=== PATIENT | male | born 1960 | race Two or more races ===

== ENCOUNTER 2016-06-15 11:41 | Day surgery (SDC) | payer MEDICARE ==
[2016-06-12 14:50] LABS: Basophils # (auto) 0 uL; Basophils % (auto) 0.2 % (0.0-2.0); Eosinophils # (auto) 0.1 uL; Eosinophils % (auto) 0.8 % (0.0-7.0); Hemoglobin 14.5 g/dL (13.5-17.5); Lymphocytes # (auto) 1.3 uL; Lymphocytes % (auto) 11.1 % (10.0-50.0); Mean Corpuscular Hemoglobin 34.2 pg (28.0-32.0); Mean Corpuscular Hgb Conc. 33.8 g/dL (32.0-36.0); Mean Corpuscular Volume 101.1 fL (80.0-100.0); Monocytes # (auto) 0.9 uL; Monocytes % (auto) 7.5 % (0.0-12.0); Neutrophils # (auto) 9.6 uL; Neutrophils % (auto) 80.4 % (37.0-80.0); Platelet Count (auto) 281 10^3/uL (140-450); Red Cell Distribution Width 14.9 % (11.6-16.0); White Blood Cell 11.9 10^3/uL (4.4-10.8)
[2016-06-12 15:07] LABS: INR 0.93 (0.9-1.15); Partial Thromboplastin Time 28.5 sec (22.64-33.71)
[~2016-06-15] VITALS: Ht 167.6 cm; Wt 59.0 kg
[~2016-06-15 11:41] MED LIST: FOLI1TAB6 PO; METF-370 PO; SERT-138 PO
[2016-06-15] MEDS ORDERED: LIDOCAINE HCL 2 % INJ 2ML MPF NEB ONE (11:45)
[2016-06-15] MEDS ORDERED: LIDOCAINE 2%HCL (LOCAL ANESTH.) INJ 20ML MDV ONE ×2 (11:56→12:41)
[2016-06-15] MEDS ORDERED: SODIUM CHLORIDE LOCK 10 ML ONE (12:49)
[2016-06-15] MEDS: fentaNYL CITRATE 100 MCG/2 ML VL ONE ×2 (13:24→13:33)
[2016-06-15] MEDS: MIDAZOLAM HCL 5 MG/ML-1ML VIAL ONE ×5 (13:24→13:44)
[2016-06-15] MEDS ORDERED: MIDAZOLAM HCL 5 MG/ML-1ML VIAL ONE (13:46)
[2016-06-15 17:18] VITALS: BP 145/76
== END 2016-06-15 17:45 | disposition home or self-care (01) ==
LOC: GI 11:41
PROVIDERS: ATTEND Internal Medicine Pulmonary Disease
DX: R91.8 Other nonspecific abnormal finding of lung field (principal); F10.99 Alcohol use, unspecified with unspecified alcohol-induced disorder; E11.9 Type 2 diabetes mellitus without complications; Z87.891 Personal history of nicotine dependence
CPT/HCPCS: 31624; 31625; 36415; 71010; 82962; 85025; 85610; 85730; 87070; 87205; 88305; 88341; 88342; 94640; 94660; J2250; J3010

== ENCOUNTER → 2016-08-05 | Outpatient (CLI) | payer MEDICARE ==
[2016-08-05 12:25] LABS: CONDITION Y; Hematocrit 40.5 % (41.0-53.0); Hemoglobin 13.7 g/dL (13.5-17.5); Mean Corpuscular Hemoglobin 33.5 pg (28.0-32.0); Mean Corpuscular Hgb Conc. 33.9 g/dL (32.0-36.0); Mean Platelet Volume 7.9 fL (7.4-10.4); Platelet Count (auto) 245 10^3/uL (140-450); Red Cell Distribution Width 14.3 % (11.6-16.0); SUSPECT SEE PRINTOUT; White Blood Cell 10.6 10^3/uL (4.4-10.8)
[2016-08-05 12:43] LABS: Albumin 2.9 g/dL (3.4-5.0); BUN/Creatinine Ratio 18.4; Bilirubin, Total 0.6 mg/dL (0.2-1.0); Calcium 8.2 mg/dL (8.5-10.1); Total Protein 7.3 g/dL (6.4-8.2)
[2016-08-05 13:02] LABS: Potassium 5.2 mmol/L (3.5-5.1)
[2016-08-05 13:05] LABS: Metamyelocytes % 0; Myelocytes % 0; Promyelocytes % 0; Reactive Lymphocytes 0
[2016-08-05 14:37] LABS: Platelet Estimate Adequate
[2016-08-05 14:38] LABS: Stomatocytes Few
== END | disposition home or self-care (01) ==
LOC: LAB 12:06
PROVIDERS: ATTEND Internal Medicine
DX: C34.12 Malignant neoplasm of upper lobe, left bronchus or lung (principal)
CPT/HCPCS: 36415; 80053; 83615; 85007; 85027

== ENCOUNTER → 2016-08-11 | Outpatient (CLI) | payer MEDICARE ==
[2016-08-11 14:40] LABS: Basophils # (auto) 0.1 uL; Basophils % (auto) 0.5 % (0.0-2.0); CONDITION Y; Eosinophils # (auto) 0 uL; Eosinophils % (auto) 0.4 % (0.0-7.0); Hematocrit 39.1 % (41.0-53.0); Hemoglobin 13.4 g/dL (13.5-17.5); Lymphocytes % (auto) 10.6 % (10.0-50.0); Mean Corpuscular Hemoglobin 33.7 pg (28.0-32.0); Mean Corpuscular Hgb Conc. 34.1 g/dL (32.0-36.0); Mean Corpuscular Volume 98.9 fL (80.0-100.0); Mean Platelet Volume 7.1 fL (7.4-10.4); Monocytes # (auto) 0.6 uL; Monocytes % (auto) 6.5 % (0.0-12.0); Platelet Count (auto) 244 10^3/uL (140-450); White Blood Cell 9.8 10^3/uL (4.4-10.8)
[2016-08-11 14:57] LABS: BUN/Creatinine Ratio 11.3; Potassium 3.5 mmol/L (3.5-5.1)
== END | disposition home or self-care (01) ==
LOC: LAB 14:29
PROVIDERS: ATTEND Internal Medicine
DX: C34.12 Malignant neoplasm of upper lobe, left bronchus or lung (principal)
CPT/HCPCS: 36415; 80048; 85025

== ENCOUNTER → 2016-08-17 | Outpatient (CLI) | payer MEDICARE ==
[2016-08-17 11:08] LABS: Basophils # (auto) 0 uL; Basophils % (auto) 0.7 % (0.0-2.0); CONDITION Y; Eosinophils # (auto) 0 uL; Hematocrit 44.4 % (41.0-53.0); Hemoglobin 15.3 g/dL (13.5-17.5); Lymphocytes # (auto) 0.9 uL; Lymphocytes % (auto) 17.6 % (10.0-50.0); Mean Corpuscular Hgb Conc. 34.4 g/dL (32.0-36.0); Mean Corpuscular Volume 98.7 fL (80.0-100.0); Mean Platelet Volume 7.8 fL (7.4-10.4); Monocytes # (auto) 0.3 uL; Monocytes % (auto) 6.4 % (0.0-12.0); Neutrophils # (auto) 3.7 uL; Neutrophils % (auto) 74.3 % (37.0-80.0); Platelet Count (auto) 260 10^3/uL (140-450); SUSPECT SEE PRINTOUT
[2016-08-17 11:20] LABS: Platelet Estimate Adequate
[2016-08-17 11:21] LABS: RBC Morphology Normal
[2016-08-17 11:27] LABS: Calcium 9.5 mg/dL (8.5-10.1); Potassium 4.5 mmol/L (3.5-5.1)
== END | disposition home or self-care (01) ==
LOC: LAB 10:11
PROVIDERS: ATTEND Internal Medicine
DX: C34.12 Malignant neoplasm of upper lobe, left bronchus or lung (principal)
CPT/HCPCS: 36415; 80048; 85025

== ENCOUNTER → 2016-08-24 | Outpatient (CLI) | payer MEDICARE ==
[2016-08-24 14:32] LABS: Basophils # (auto) 0 uL; Basophils % (auto) 0.9 % (0.0-2.0); CONDITION Y; Eosinophils # (auto) 0.1 uL; Eosinophils % (auto) 1.6 % (0.0-7.0); Hemoglobin 12.9 g/dL (13.5-17.5); Lymphocytes # (auto) 0.9 uL; Lymphocytes % (auto) 26.9 % (10.0-50.0); Mean Corpuscular Hemoglobin 33.7 pg (28.0-32.0); Mean Platelet Volume 6.7 fL (7.4-10.4); Monocytes # (auto) 0.3 uL; Monocytes % (auto) 8.7 % (0.0-12.0); Neutrophils % (auto) 61.9 % (37.0-80.0); Platelet Count (auto) 248 10^3/uL (140-450); Red Cell Distribution Width 14.1 % (11.6-16.0); SUSPECT SEE PRINTOUT; White Blood Cell 3.2 10^3/uL (4.4-10.8)
[2016-08-24 15:06] LABS: Albumin 3.5 g/dL (3.4-5.0); BUN/Creatinine Ratio 13.3; Bilirubin, Total 0.2 mg/dL (0.2-1.0); Calcium 8.6 mg/dL (8.5-10.1); Potassium 3.9 mmol/L (3.5-5.1); Total Protein 7.5 g/dL (6.4-8.2)
== END | disposition home or self-care (01) ==
LOC: LAB 14:12
PROVIDERS: ATTEND Internal Medicine
DX: C34.2 Malignant neoplasm of middle lobe, bronchus or lung (principal)
CPT/HCPCS: 36415; 80053; 85025

== ENCOUNTER → 2016-08-31 | Outpatient (CLI) | payer MEDICARE ==
[2016-08-31 14:41] LABS: Basophils # (auto) 0 uL; Basophils % (auto) 0.8 % (0.0-2.0); CONDITION Y; Eosinophils # (auto) 0.1 uL; Eosinophils % (auto) 1.7 % (0.0-7.0); Hematocrit 37.3 % (41.0-53.0); Lymphocytes # (auto) 0.9 uL; Lymphocytes % (auto) 23.3 % (10.0-50.0); Mean Corpuscular Hemoglobin 34.2 pg (28.0-32.0); Mean Corpuscular Volume 97.9 fL (80.0-100.0); Mean Platelet Volume 6.7 fL (7.4-10.4); Monocytes # (auto) 0.3 uL; Monocytes % (auto) 8.2 % (0.0-12.0); Neutrophils # (auto) 2.7 uL; Platelet Count (auto) 178 10^3/uL (140-450); Red Cell Distribution Width 14.3 % (11.6-16.0); SUSPECT SEE PRINTOUT; White Blood Cell 4.1 10^3/uL (4.4-10.8)
[2016-08-31 14:54] LABS: BUN/Creatinine Ratio 15.2; Calcium 8.7 mg/dL (8.5-10.1); Potassium 3.9 mmol/L (3.5-5.1)
== END | disposition home or self-care (01) ==
LOC: LAB 14:18
PROVIDERS: ATTEND Internal Medicine
DX: C34.12 Malignant neoplasm of upper lobe, left bronchus or lung (principal)
CPT/HCPCS: 36415; 80048; 83615; 85025

== ENCOUNTER → 2016-09-07 | Outpatient (CLI) | payer MEDICARE ==
[2016-09-07 14:48] LABS: Basophils # (auto) 0 uL; CONDITION Y; Eosinophils # (auto) 0.1 uL; Monocytes # (auto) 0.2 uL; SUSPECT SEE PRINTOUT
[2016-09-07 15:04] LABS: Albumin 3.3 g/dL (3.4-5.0); BUN/Creatinine Ratio 15.8; Bilirubin, Total 0.5 mg/dL (0.2-1.0); Calcium 9.3 mg/dL (8.5-10.1); Potassium 3.9 mmol/L (3.5-5.1); Total Protein 7.5 g/dL (6.4-8.2)
[2016-09-07 15:21] LABS: Basophils % (auto) 0.3 % (0.0-2.0); Eosinophils % (auto) 1.4 % (0.0-7.0); Hematocrit 32.7 % (41.0-53.0); Hemoglobin 11.6 g/dL (13.5-17.5); Lymphocytes # (auto) 0.6 uL; Lymphocytes % (auto) 15.8 % (10.0-50.0); Mean Corpuscular Hemoglobin 34.7 pg (28.0-32.0); Mean Corpuscular Hgb Conc. 35.5 g/dL (32.0-36.0); Mean Corpuscular Volume 97.8 fL (80.0-100.0); Mean Platelet Volume 6.9 fL (7.4-10.4); Monocytes % (auto) 4.7 % (0.0-12.0); Neutrophils # (auto) 2.8 uL; Neutrophils % (auto) 77.8 % (37.0-80.0); Platelet Count (auto) 115 10^3/uL (140-450); Red Cell Distribution Width 14.9 % (11.6-16.0); White Blood Cell 3.6 10^3/uL (4.4-10.8)
== END | disposition home or self-care (01) ==
LOC: LAB 14:37
PROVIDERS: ATTEND Internal Medicine
DX: C34.12 Malignant neoplasm of upper lobe, left bronchus or lung (principal)
CPT/HCPCS: 36415; 80053; 83615; 85025

== ENCOUNTER → 2016-09-14 | Outpatient (CLI) | payer MEDICARE ==
[2016-09-14 12:54] LABS: Albumin 3.3 g/dL (3.4-5.0); BUN/Creatinine Ratio 21.3; Bilirubin, Total 0.4 mg/dL (0.2-1.0); Calcium 9.6 mg/dL (8.5-10.1); Potassium 4.8 mmol/L (3.5-5.1); Total Protein 7.7 g/dL (6.4-8.2)
[2016-09-14 14:19] LABS: Basophils # (auto) 0 uL; Basophils % (auto) 0.6 % (0.0-2.0); CONDITION Y; Eosinophils # (auto) 0 uL; Eosinophils % (auto) 2.3 % (0.0-7.0); Hematocrit 31.8 % (41.0-53.0); Hemoglobin 11.3 g/dL (13.5-17.5); Lymphocytes # (auto) 0.7 uL; Lymphocytes % (auto) 32.5 % (10.0-50.0); Mean Corpuscular Hemoglobin 35.5 pg (28.0-32.0); Mean Corpuscular Hgb Conc. 35.6 g/dL (32.0-36.0); Mean Corpuscular Volume 99.6 fL (80.0-100.0); Mean Platelet Volume 8.3 fL (7.4-10.4); Monocytes # (auto) 0.2 uL; Monocytes % (auto) 7.5 % (0.0-12.0); Neutrophils # (auto) 1.2 uL; Neutrophils % (auto) 57.1 % (37.0-80.0); Platelet Count (auto) 112 10^3/uL (140-450); Red Cell Distribution Width 15.2 % (11.6-16.0); SUSPECT SEE PRINTOUT
== END | disposition home or self-care (01) ==
LOC: LAB 12:08
PROVIDERS: ATTEND Internal Medicine
DX: C34.12 Malignant neoplasm of upper lobe, left bronchus or lung (principal)
CPT/HCPCS: 36415; 80053; 83615; 85025

== ENCOUNTER → 2016-09-21 | Outpatient (CLI) | payer MEDICARE ==
[2016-09-21 14:28] LABS: CONDITION Y; DEFINITIVE SEE PRINTOUT; Hematocrit 33.3 % (41.0-53.0); Hemoglobin 11.5 g/dL (13.5-17.5); Mean Corpuscular Hemoglobin 35.3 pg (28.0-32.0); Mean Corpuscular Hgb Conc. 34.6 g/dL (32.0-36.0); Mean Platelet Volume 7.4 fL (7.4-10.4); Platelet Count (auto) 318 10^3/uL (140-450); Red Cell Distribution Width 17.1 % (11.6-16.0); SUSPECT SEE PRINTOUT
[2016-09-21 14:42] LABS: White Blood Cell 3.5 10^3/uL (4.4-10.8)
[2016-09-21 14:43] LABS: Metamyelocytes % 0; Myelocytes % 0; Promyelocytes % 0; Reactive Lymphocytes 0
[2016-09-21 14:53] LABS: Albumin 3.5 g/dL (3.4-5.0); Bilirubin, Total 0.1 mg/dL (0.2-1.0); Calcium 9.3 mg/dL (8.5-10.1); Potassium 4.1 mmol/L (3.5-5.1); Total Protein 7.8 g/dL (6.4-8.2)
[2016-09-21 20:31] LABS: Macrocytosis Slight; Platelet Estimate Adequate
== END | disposition home or self-care (01) ==
LOC: LAB 14:06
PROVIDERS: ATTEND Internal Medicine
DX: C34.12 Malignant neoplasm of upper lobe, left bronchus or lung (principal)
CPT/HCPCS: 36415; 80053; 83615; 85007; 85027

== ENCOUNTER → 2016-10-08 | Outpatient (CLI) | payer MEDICARE ==
[2016-10-08 10:14] LABS: CONDITION Y; DEFINITIVE SEE PRINTOUT; Hematocrit 40.9 % (41.0-53.0); Hemoglobin 14.1 g/dL (13.5-17.5); Mean Corpuscular Hemoglobin 37.4 pg (28.0-32.0); Mean Corpuscular Hgb Conc. 34.4 g/dL (32.0-36.0); Mean Corpuscular Volume 108.9 fL (80.0-100.0); Mean Platelet Volume 7.3 fL (7.4-10.4); Platelet Count (auto) 287 10^3/uL (140-450); SUSPECT SEE PRINTOUT; White Blood Cell 6.8 10^3/uL (4.4-10.8)
[2016-10-08 10:18] LABS: Red Cell Distribution Width 24.5 % (11.6-16.0)
[2016-10-08 10:19] LABS: Metamyelocytes % 0; Myelocytes % 0; Promyelocytes % 0; Reactive Lymphocytes 0
[2016-10-08 10:50] LABS: Albumin 3.4 g/dL (3.4-5.0); BUN/Creatinine Ratio 7.8; Bilirubin, Total 0.2 mg/dL (0.2-1.0); Calcium 8.9 mg/dL (8.5-10.1); Potassium 4.2 mmol/L (3.5-5.1); Total Protein 7.8 g/dL (6.4-8.2)
[2016-10-08 11:05] LABS: Anisocytosis Moderate; Macrocytosis Moderate; Platelet Estimate Adequate; Stomatocytes Few
== END | disposition home or self-care (01) ==
LOC: LAB 09:28
PROVIDERS: ATTEND Internal Medicine
DX: C34.12 Malignant neoplasm of upper lobe, left bronchus or lung (principal)
CPT/HCPCS: 36415; 80053; 83615; 85007; 85027

== ENCOUNTER → 2016-10-28 | Outpatient (CLI) | payer MEDICARE ==
[2016-10-28 12:11] LABS: Basophils # (auto) 0 uL; Basophils % (auto) 0.8 % (0.0-2.0); Eosinophils # (auto) 0 uL; Eosinophils % (auto) 1.1 % (0.0-7.0); Hematocrit 36.2 % (41.0-53.0); Hemoglobin 12.7 g/dL (13.5-17.5); Lymphocytes # (auto) 0.7 uL; Lymphocytes % (auto) 16.1 % (10.0-50.0); Mean Corpuscular Hemoglobin 40.9 pg (28.0-32.0); Mean Corpuscular Volume 116.8 fL (80.0-100.0); Mean Platelet Volume 7.9 fL (7.4-10.4); Monocytes # (auto) 0.6 uL; Monocytes % (auto) 13.2 % (0.0-12.0); Neutrophils # (auto) 2.9 uL; Neutrophils % (auto) 68.8 % (37.0-80.0); Nucleated Red Blood Cells % 0.2 %; Platelet Count (auto) 27 10^3/uL (140-450); White Blood Cell 4.2 10^3/uL (4.4-10.8)
[2016-10-28 12:30] LABS: Red Cell Distribution Width 22.4 % (11.8-14.3)
[2016-10-28 12:34] LABS: Albumin 3.6 g/dL (3.4-5.0); Bilirubin, Total 0.5 mg/dL (0.2-1.0); Calcium 8.8 mg/dL (8.5-10.1); Potassium 4.3 mmol/L (3.5-5.1); Total Protein 7.6 g/dL (6.4-8.2)
[2016-10-28 13:48] LABS: Platelet Estimate Decreased
[2016-10-28 13:49] LABS: Anisocytosis Moderate; Macrocytosis Marked
[2016-10-28 13:50] LABS: Stomatocytes Few
== END | disposition home or self-care (01) ==
LOC: LAB 11:57
PROVIDERS: ATTEND Internal Medicine
DX: C34.12 Malignant neoplasm of upper lobe, left bronchus or lung (principal)
CPT/HCPCS: 36415; 80053; 83615; 85025

== ENCOUNTER → 2016-11-02 | Outpatient (CLI) | payer MEDICARE ==
[2016-11-02 13:25] LABS: Basophils # (auto) 0 uL; Basophils % (auto) 0.3 % (0.0-2.0); CONDITION Y; DEFINITIVE SEE PRINTOUT; Eosinophils # (auto) 0.1 uL; Hematocrit 32.9 % (41.0-53.0); Hemoglobin 11.5 g/dL (13.5-17.5); Lymphocytes # (auto) 0.9 uL; Lymphocytes % (auto) 15.5 % (10.0-50.0); Mean Corpuscular Hemoglobin 40.7 pg (28.0-32.0); Mean Corpuscular Hgb Conc. 34.9 g/dL (32.0-36.0); Mean Corpuscular Volume 116.7 fL (80.0-100.0); Mean Platelet Volume 8.9 fL (6.9-10.8); Monocytes # (auto) 0.5 uL; Monocytes % (auto) 8.7 % (0.0-12.0); Neutrophils # (auto) 4.4 uL; Neutrophils % (auto) 74.5 % (37.0-80.0); SUSPECT SEE PRINTOUT
[2016-11-02 13:31] LABS: Red Cell Distribution Width 20.9 % (11.8-14.3)
[2016-11-02 13:32] LABS: Platelet Count (auto) 17 10^3/uL (140-450)
[2016-11-02 14:14] LABS: Anisocytosis Moderate; Macrocytosis Marked; Platelet Estimate Markedly Decreased; Stomatocytes Few
== END | disposition home or self-care (01) ==
LOC: LAB 13:10
PROVIDERS: ATTEND Internal Medicine
DX: C34.12 Malignant neoplasm of upper lobe, left bronchus or lung (principal)
CPT/HCPCS: 36415; 85025

== ENCOUNTER → 2016-11-05 | Outpatient (CLI) | payer MEDICARE ==
[2016-11-05 08:17] LABS: Basophils # (auto) 0 uL; Basophils % (auto) 0.7 % (0.0-2.0); Eosinophils # (auto) 0.1 uL; Hematocrit 33.9 % (41.0-53.0); Hemoglobin 11.9 g/dL (13.5-17.5); Lymphocytes # (auto) 0.5 uL; Lymphocytes % (auto) 10.9 % (10.0-50.0); Mean Corpuscular Hemoglobin 42.8 pg (28.0-32.0); Mean Corpuscular Hgb Conc. 35.2 g/dL (32.0-36.0); Mean Corpuscular Volume 121.8 fL (80.0-100.0); Mean Platelet Volume 7.8 fL (6.9-10.8); Monocytes # (auto) 0.3 uL; Monocytes % (auto) 5.4 % (0.0-12.0); Neutrophils # (auto) 3.9 uL; Nucleated Red Blood Cells % 0.2 %; Red Cell Distribution Width 19.2 % (11.8-14.3); White Blood Cell 4.8 10^3/uL (4.4-10.8)
[2016-11-05 08:36] LABS: Platelet Count (auto) 19 10^3/uL (140-450)
[2016-11-05 09:05] LABS: Anisocytosis Slight; Macrocytosis Moderate; Platelet Estimate Markedly Decreased
== END | disposition home or self-care (01) ==
LOC: LAB 07:57
PROVIDERS: ATTEND Internal Medicine
DX: C34.12 Malignant neoplasm of upper lobe, left bronchus or lung (principal)
CPT/HCPCS: 36415; 82565; 84520; 85025

== ENCOUNTER → 2016-11-10 | Outpatient (CLI) | payer MEDICARE ==
[2016-11-10 12:34] LABS: Basophils # (auto) 0 uL; Basophils % (auto) 0.3 % (0.0-2.0); Eosinophils # (auto) 0 uL; Eosinophils % (auto) 0.7 % (0.0-7.0); Hematocrit 33.2 % (41.0-53.0); Hemoglobin 11.6 g/dL (13.5-17.5); Lymphocytes # (auto) 0.4 uL; Lymphocytes % (auto) 9.9 % (10.0-50.0); Mean Corpuscular Hemoglobin 42.9 pg (28.0-32.0); Mean Corpuscular Hgb Conc. 34.8 g/dL (32.0-36.0); Mean Corpuscular Volume 123.1 fL (80.0-100.0); Mean Platelet Volume 8.5 fL (6.9-10.8); Monocytes # (auto) 0.6 uL; Monocytes % (auto) 13.9 % (0.0-12.0); Neutrophils # (auto) 3.3 uL; Neutrophils % (auto) 75.2 % (37.0-80.0); Nucleated Red Blood Cells % 0.5 %; Platelet Count (auto) 37 10^3/uL (140-450); Red Cell Distribution Width 19.1 % (11.8-14.3); White Blood Cell 4.4 10^3/uL (4.4-10.8)
[2016-11-10 13:53] LABS: Platelet Estimate Markedly Decreased
[2016-11-10 13:54] LABS: Anisocytosis Slight; Macrocytosis Moderate
== END | disposition home or self-care (01) ==
LOC: LAB 11:47
PROVIDERS: ATTEND Internal Medicine
DX: C34.12 Malignant neoplasm of upper lobe, left bronchus or lung (principal)
CPT/HCPCS: 36415; 85025

== ENCOUNTER → 2016-11-16 | Outpatient (CLI) | payer MEDICARE ==
[2016-11-16 10:53] LABS: Basophils # (auto) 0 uL; Eosinophils # (auto) 0 uL; Hemoglobin 11.9 g/dL (13.5-17.5); Monocytes # (auto) 0.6 uL; Neutrophils # (auto) 2.3 uL; Nucleated Red Blood Cells % 0.3 %
[2016-11-16 10:56] LABS: Basophils % (auto) 0.3 % (0.0-2.0); Eosinophils % (auto) 1.1 % (0.0-7.0); Hematocrit 34.3 % (41.0-53.0); Lymphocytes # (auto) 0.8 uL; Lymphocytes % (auto) 20.1 % (10.0-50.0); Mean Corpuscular Hemoglobin 43.1 pg (28.0-32.0); Mean Corpuscular Hgb Conc. 34.8 g/dL (32.0-36.0); Mean Corpuscular Volume 124.1 fL (80.0-100.0); Mean Platelet Volume 8.6 fL (6.9-10.8); Monocytes % (auto) 16.8 % (0.0-12.0); Neutrophils % (auto) 61.7 % (37.0-80.0); Platelet Count (auto) 85 10^3/uL (140-450); Red Cell Distribution Width 19.2 % (11.8-14.3); White Blood Cell 3.8 10^3/uL (4.4-10.8)
[2016-11-16 11:53] LABS: Albumin 3.5 g/dL (3.4-5.0); BUN/Creatinine Ratio 18.6; Bilirubin, Total 0.2 mg/dL (0.2-1.0); Potassium 3.8 mmol/L (3.5-5.1); Total Protein 7.7 g/dL (6.4-8.2)
[2016-11-16 12:09] LABS: Anisocytosis Slight; Hypochromia Slight; Macrocytosis Slight; Platelet Estimate Decreased
== END | disposition home or self-care (01) ==
LOC: LAB 10:06
PROVIDERS: ATTEND Internal Medicine
DX: C34.12 Malignant neoplasm of upper lobe, left bronchus or lung (principal)
CPT/HCPCS: 36415; 80053; 85025

== ENCOUNTER → 2016-12-15 | Outpatient (CLI) | payer MEDICARE ==
[~2016-12-15] MED LIST changes: +ALBUTEROL SULF 2.5 MG/0.5ML(0.5%) NEB SOLN ONE
== END | disposition home or self-care (01) ==
LOC: PF 08:49
PROVIDERS: ATTEND Internal Medicine Pulmonary Disease
DX: J44.9 Chronic obstructive pulmonary disease, unspecified (principal); C34.12 Malignant neoplasm of upper lobe, left bronchus or lung
CPT/HCPCS: 94060; 94620

== ENCOUNTER → 2016-12-22 | Outpatient (CLI) | payer MEDICARE ==
[~2016-12-22] MED LIST changes: -ALBUTEROL SULF 2.5 MG/0.5ML(0.5%) NEB SOLN ONE
== END | disposition home or self-care (01) ==
LOC: XY 08:07
PROVIDERS: ATTEND Internal Medicine Pulmonary Disease
DX: C34.12 Malignant neoplasm of upper lobe, left bronchus or lung (principal)
CPT/HCPCS: 78582; A9540; A9558

== ENCOUNTER → 2016-12-29 | Outpatient (CLI) | payer MEDICARE | END | disposition home or self-care (01) | LOC: XYW 16:11 | PROVIDERS: ATTEND Internal Medicine Cardiovascular Disease | DX: Z01.818 Encounter for other preprocedural examination (principal) | CPT/HCPCS: 93306 ==

== ENCOUNTER → 2017-06-01 | Outpatient (CLI) | payer MEDICARE ==
[~2017-06-01] MED LIST changes: +PRE1T PO; -SERT-138 PO; +SERT-274 PO
[2017-06-01 09:55] LABS: Basophils # (auto) 0 uL; Eosinophils # (auto) 0.1 uL; Lymphocytes # (auto) 0.6 uL; Monocytes # (auto) 0.7 uL; Neutrophils # (auto) 4.3 uL
[2017-06-01 09:57] LABS: Basophils % (auto) 0.6 % (0.0-2.0); Eosinophils % (auto) 1.2 % (0.0-7.0); Hematocrit 50.9 % (41.0-53.0); Hemoglobin 17.1 g/dL (13.5-17.5); Lymphocytes % (auto) 10.8 % (10.0-50.0); Mean Corpuscular Hemoglobin 35.9 pg (28.0-32.0); Mean Corpuscular Hgb Conc. 33.7 g/dL (32.0-36.0); Mean Corpuscular Volume 106.6 fL (80.0-100.0); Neutrophils % (auto) 75.4 % (37.0-80.0); Platelet Count (auto) 97 10^3/uL (140-450); Red Blood Cells 4.77 10^6/uL (4.5-5.90); White Blood Cell 5.7 10^3/uL (4.4-10.8)
[2017-06-01 10:13] LABS: Albumin 3.7 g/dL (3.4-5.0); BUN/Creatinine Ratio 14.7; Bilirubin, Total 0.6 mg/dL (0.2-1.0); Calcium 9.2 mg/dL (8.5-10.1); Potassium 4.2 mmol/L (3.5-5.1); Total Protein 8.1 g/dL (6.4-8.2)
== END | disposition home or self-care (01) ==
LOC: LAB 09:39
PROVIDERS: ATTEND Internal Medicine
DX: C34.12 Malignant neoplasm of upper lobe, left bronchus or lung (principal); E11.9 Type 2 diabetes mellitus without complications; J44.9 Chronic obstructive pulmonary disease, unspecified; Z87.891 Personal history of nicotine dependence
CPT/HCPCS: 36415; 80053; 83615; 85025

== ENCOUNTER → 2017-09-22 | Outpatient (CLI) | payer MEDICARE ==
[2017-09-22 10:25] LABS: Basophils # (auto) 0 uL; Eosinophils # (auto) 0.1 uL; Monocytes # (auto) 0.8 uL; Neutrophils # (auto) 3.8 uL
[2017-09-22 10:26] LABS: Basophils % (auto) 0.4 % (0.0-2.0); Hematocrit 45.7 % (41.0-53.0); Hemoglobin 15.7 g/dL (13.5-17.5); Lymphocytes # (auto) 0.9 uL; Lymphocytes % (auto) 15.7 % (10.0-50.0); Mean Corpuscular Hemoglobin 35.3 pg (28.0-32.0); Mean Corpuscular Hgb Conc. 34.3 g/dL (32.0-36.0); Mean Corpuscular Volume 102.9 fL (80.0-100.0); Neutrophils % (auto) 67.9 % (37.0-80.0); Platelet Count (auto) 125 10^3/uL (140-450); Red Blood Cells 4.44 10^6/uL (4.5-5.90); Red Cell Distribution Width 13.9 % (11.8-14.3); White Blood Cell 5.6 10^3/uL (4.4-10.8)
[2017-09-22 11:07] LABS: Albumin 3.4 g/dL (3.4-5.0); BUN/Creatinine Ratio 7.3; Bilirubin, Total 0.4 mg/dL (0.2-1.0); Calcium 8.6 mg/dL (8.5-10.1); Potassium 3.7 mmol/L (3.5-5.1); Total Protein 7.5 g/dL (6.4-8.2)
== END | disposition home or self-care (01) ==
LOC: LAB 10:03
PROVIDERS: ATTEND Internal Medicine
DX: C34.12 Malignant neoplasm of upper lobe, left bronchus or lung (principal); E11.9 Type 2 diabetes mellitus without complications; J44.9 Chronic obstructive pulmonary disease, unspecified; F32.9 Major depressive disorder, single episode, unspecified; Z87.891 Personal history of nicotine dependence
CPT/HCPCS: 36415; 80053; 83615; 85025

== ENCOUNTER → 2018-01-21 | Outpatient (CLI) | payer MEDICARE ==
[2018-01-21 10:32] LABS: Basophils # (auto) 0 uL; Basophils % (auto) 0.7 % (0.0-2.0); Eosinophils # (auto) 0.2 uL; Eosinophils % (auto) 3.4 % (0.0-7.0); Hematocrit 50.7 % (41.0-53.0); Hemoglobin 17.2 g/dL (13.5-17.5); Lymphocytes # (auto) 1.3 uL; Lymphocytes % (auto) 18.4 % (10.0-50.0); Mean Corpuscular Hemoglobin 33.6 pg (28.0-32.0); Mean Corpuscular Hgb Conc. 33.9 g/dL (32.0-36.0); Mean Corpuscular Volume 99.3 fL (80.0-100.0); Monocytes # (auto) 0.8 uL; Monocytes % (auto) 11.1 % (0.0-12.0); Neutrophils # (auto) 4.8 uL; Neutrophils % (auto) 66.4 % (37.0-80.0); Nucleated Red Blood Cells % 0.1 %; Platelet Count (auto) 205 10^3/uL (140-450); White Blood Cell 7.2 10^3/uL (4.4-10.8)
[2018-01-21 11:38] LABS: Calcium 9.5 mg/dL (8.5-10.1); Potassium 4.1 mmol/L (3.5-5.1)
[2018-01-21 11:43] LABS: Albumin 3.6 g/dL (3.4-5.0); BUN/Creatinine Ratio 10.1; Bilirubin, Total 0.4 mg/dL (0.2-1.0); Total Protein 8.2 g/dL (6.4-8.2)
== END | disposition home or self-care (01) ==
LOC: LAB 10:06
PROVIDERS: ATTEND Internal Medicine
DX: C34.12 Malignant neoplasm of upper lobe, left bronchus or lung (principal)
CPT/HCPCS: 36415; 80053; 83615; 85025

== ENCOUNTER → 2018-03-24 | Outpatient (CLI) | payer MEDICARE ==
[2018-03-24 09:55] LABS: Basophils # (auto) 0.1 uL; Basophils % (auto) 0.9 % (0.0-2.0); Eosinophils # (auto) 0.2 uL; Eosinophils % (auto) 2.3 % (0.0-7.0); Hematocrit 48.3 % (41.0-53.0); Hemoglobin 16.5 g/dL (13.5-17.5); Lymphocytes # (auto) 1.2 uL; Lymphocytes % (auto) 15.4 % (10.0-50.0); Mean Corpuscular Hemoglobin 33.8 pg (28.0-32.0); Mean Corpuscular Hgb Conc. 34.2 g/dL (32.0-36.0); Monocytes # (auto) 0.8 uL; Monocytes % (auto) 10.7 % (0.0-12.0); Neutrophils # (auto) 5.5 uL; Neutrophils % (auto) 70.7 % (37.0-80.0); Nucleated Red Blood Cells % 0.2 %; Platelet Count (auto) 236 10^3/uL (140-450); Red Blood Cells 4.88 10^6/uL (4.5-5.90); Red Cell Distribution Width 14.7 % (11.8-14.3); White Blood Cell 7.7 10^3/uL (4.4-10.8)
[2018-03-24 10:26] LABS: Albumin 3.5 g/dL (3.4-5.0); Calcium 9.1 mg/dL (8.5-10.1); Potassium 4.3 mmol/L (3.5-5.1)
[2018-03-24 10:28] LABS: BUN/Creatinine Ratio 10.4; Bilirubin, Total 0.2 mg/dL (0.2-1.0); Total Protein 7.8 g/dL (6.4-8.2)
== END | disposition home or self-care (01) ==
LOC: LAB 09:33
PROVIDERS: ATTEND Internal Medicine
DX: C34.12 Malignant neoplasm of upper lobe, left bronchus or lung (principal)
CPT/HCPCS: 36415; 80053; 83615; 85025

== ENCOUNTER → 2018-10-05 | Outpatient (CLI) | payer MEDICARE ==
[2018-10-05 11:13] LABS: Lymphocytes # (auto) 0.6 uL; Monocytes # (auto) 0.9 uL
[2018-10-05 11:17] LABS: Basophils # (auto) 0.2 uL; Basophils % (auto) 2.8 % (0.0-2.0); Eosinophils # (auto) 0 uL; Eosinophils % (auto) 0.6 % (0.0-7.0); Hematocrit 52.3 % (41.0-53.0); Hemoglobin 17.9 g/dL (13.5-17.5); Mean Corpuscular Hemoglobin 35.8 pg (28.0-32.0); Mean Corpuscular Hgb Conc. 34.2 g/dL (32.0-36.0); Mean Corpuscular Volume 104.5 fL (80.0-100.0); Monocytes % (auto) 14.5 % (0.0-12.0); Neutrophils # (auto) 4.6 uL; Neutrophils % (auto) 73.1 % (37.0-80.0); Platelet Count (auto) 150 10^3/uL (140-450); Red Cell Distribution Width 14.8 % (11.8-14.3); White Blood Cell 6.3 10^3/uL (4.4-10.8)
[2018-10-05 13:35] LABS: Potassium 4.8 mmol/L (3.5-5.1)
[2018-10-05 14:08] LABS: Albumin 3.9 g/dL (3.4-5.0); BUN/Creatinine Ratio 19.6; Calcium 10.1 mg/dL (8.5-10.1)
[2018-10-05 14:23] LABS: Bilirubin, Total 0.8 mg/dL (0.2-1.0); Total Protein 8.3 g/dL (6.4-8.2)
== END | disposition home or self-care (01) ==
LOC: LAB 10:48
PROVIDERS: ATTEND Internal Medicine
DX: C34.12 Malignant neoplasm of upper lobe, left bronchus or lung (principal)
CPT/HCPCS: 36415; 80053; 83615; 85025

== ENCOUNTER → 2018-10-26 | Outpatient (CLI) | payer MEDICARE | END | disposition home or self-care (01) | LOC: LAB 10:14 | PROVIDERS: ATTEND Internal Medicine | DX: C34.12 Malignant neoplasm of upper lobe, left bronchus or lung (principal) | CPT/HCPCS: 36415; 82565; 84520 ==

== ENCOUNTER → 2019-05-24 | Outpatient (CLI) | payer MEDICARE ==
[2019-05-24 08:56] LABS: Basophils # (auto) 0.1 10 ^3/uL (0-0.2); Basophils % (auto) 0.9 % (0.0-2.0); Eosinophils # (auto) 0.1 10 ^3/uL (0-0.8); Eosinophils % (auto) 1.8 % (0.0-7.0); Hematocrit 47.3 % (41.0-53.0); Hemoglobin 16.1 g/dL (13.5-17.5); Lymphocytes # (auto) 1.3 10 ^3/uL (0.4-5.4); Lymphocytes % (auto) 19.8 % (10.0-50.0); Mean Corpuscular Hemoglobin 33.3 pg (28.0-32.0); Mean Corpuscular Volume 97.8 fL (80.0-100.0); Monocytes # (auto) 0.7 10 ^3/uL (0-1.3); Monocytes % (auto) 10.3 % (0.0-12.0); Neutrophils # (auto) 4.6 10 ^3/uL (1.6-8.6); Neutrophils % (auto) 67.2 % (37.0-80.0); Platelet Count (auto) 227 10^3/uL (140-450); Red Blood Cells 4.83 10^6/uL (4.5-5.90); Red Cell Distribution Width 13.2 % (11.8-14.3); White Blood Cell 6.8 10^3/uL (4.4-10.8)
[2019-05-24 09:22] LABS: Albumin 3.4 g/dL (3.4-5.0); Calcium 9.3 mg/dL (8.5-10.1); Potassium 4.5 mmol/L (3.5-5.1)
[2019-05-24 09:25] LABS: BUN/Creatinine Ratio 8.9; Bilirubin, Total 0.3 mg/dL (0.2-1.0)
== END | disposition home or self-care (01) ==
LOC: LAB 08:33
PROVIDERS: ATTEND Internal Medicine
DX: C34.12 Malignant neoplasm of upper lobe, left bronchus or lung (principal)
CPT/HCPCS: 36415; 80053; 83615; 85025

== ENCOUNTER → 2020-03-25 | Outpatient (CLI) | payer MEDICARE ==
[2020-03-25 09:20] LABS: Urine WBC None Seen /hpf (0 - 3)
[2020-03-25 09:28] LABS: Basophils # (auto) 0.1 10 ^3/uL (0-0.2); Eosinophils # (auto) 0.1 10 ^3/uL (0-0.8); Hemoglobin 16.6 g/dL (13.5-17.5); Lymphocytes # (auto) 1.1 10 ^3/uL (0.4-5.4); Monocytes # (auto) 0.6 10 ^3/uL (0-1.3); Neutrophils # (auto) 3.6 10 ^3/uL (1.6-8.6); White Blood Cell 5.5 10^3/uL (4.4-10.8)
[2020-03-25 09:31] LABS: Basophils % (auto) 1.1 % (0.0-2.0); Hematocrit 47.7 % (41.0-53.0); Lymphocytes % (auto) 20.5 % (10.0-50.0); Mean Corpuscular Hemoglobin 35.1 pg (28.0-32.0); Mean Corpuscular Hgb Conc. 34.8 g/dL (32.0-36.0); Mean Corpuscular Volume 100.9 fL (80.0-100.0); Monocytes % (auto) 11.5 % (0.0-12.0); Neutrophils % (auto) 64.9 % (37.0-80.0); Nucleated Red Blood Cells % 0.1 %; Platelet Count (auto) 203 10^3/uL (140-450); Red Blood Cells 4.73 10^6/uL (4.5-5.90); Red Cell Distribution Width 13.7 % (11.8-14.3)
[2020-03-25 09:40] LABS: Urine Bacteria NONE SEEN /hpf (None Seen); Urine Blood Negative /uL (Negative); Urine Specific Gravity 1.016 (1.001-1.035)
[2020-03-25 10:15] LABS: Potassium 4.7 mmol/L (3.5-5.1)
[2020-03-25 10:27] LABS: Albumin 3.6 g/dL (3.4-5.0); BUN/Creatinine Ratio 10.3; Bilirubin, Total 0.4 mg/dL (0.2-1.0); Calcium 9.5 mg/dL (8.5-10.1); Total Protein 8.3 g/dL (6.4-8.2)
== END | disposition home or self-care (01) ==
LOC: LAB 09:05
PROVIDERS: ATTEND Internal Medicine
DX: Z12.5 Encounter for screening for malignant neoplasm of prostate (principal); C34.90 Malignant neoplasm of unspecified part of unspecified bronchus or lung; E11.9 Type 2 diabetes mellitus without complications; J44.9 Chronic obstructive pulmonary disease, unspecified
CPT/HCPCS: 36415; 80053; 80061; 81001; 82043; 83036; 84153; 84443; 85025

== ENCOUNTER → 2020-05-02 | Outpatient (CLI) | payer OTHER ==
[2020-05-02 12:51] LABS: Basophils # (auto) 0.1 10 ^3/uL (0-0.2); Eosinophils # (auto) 0.1 10 ^3/uL (0-0.8); Hemoglobin 15.9 g/dL (13.5-17.5); Lymphocytes # (auto) 1.3 10 ^3/uL (0.4-5.4)
[2020-05-02 12:53] LABS: Basophils % (auto) 0.8 % (0.0-2.0); Eosinophils % (auto) 0.8 % (0.0-7.0); Lymphocytes % (auto) 17.8 % (10.0-50.0); Mean Corpuscular Hemoglobin 35.3 pg (28.0-32.0); Mean Corpuscular Hgb Conc. 34.4 g/dL (32.0-36.0); Mean Corpuscular Volume 102.6 fL (80.0-100.0); Monocytes # (auto) 0.7 10 ^3/uL (0-1.3); Monocytes % (auto) 9.9 % (0.0-12.0); Neutrophils # (auto) 5.1 10 ^3/uL (1.6-8.6); Neutrophils % (auto) 70.7 % (37.0-80.0); Platelet Count (auto) 204 10^3/uL (140-450); Red Blood Cells 4.49 10^6/uL (4.5-5.90); Red Cell Distribution Width 14.4 % (11.8-14.3); White Blood Cell 7.2 10^3/uL (4.4-10.8)
[2020-05-02 14:00] LABS: Albumin 3.8 g/dL (3.4-5.0); Potassium 4.3 mmol/L (3.5-5.1)
[2020-05-02 14:03] LABS: BUN/Creatinine Ratio 11.7; Bilirubin, Total 0.3 mg/dL (0.2-1.0); Total Protein 8.4 g/dL (6.4-8.2)
== END | disposition home or self-care (01) ==
LOC: LAB 12:34
PROVIDERS: ATTEND Internal Medicine
DX: C34.12 Malignant neoplasm of upper lobe, left bronchus or lung (principal)
CPT/HCPCS: 36415; 80053; 83615; 85025

== ENCOUNTER → 2020-08-20 | Outpatient (CLI) | payer OTHER ==
[~2020-08-20] MED LIST changes: -SERT-274 PO; +SERT50TA19 PO
[2020-08-20 11:09] LABS: Basophils # (auto) 0.1 10 ^3/uL (0-0.2); Basophils % (auto) 1.4 % (0.0-2.0); Eosinophils # (auto) 0.1 10 ^3/uL (0-0.8); Eosinophils % (auto) 1.1 % (0.0-7.0); Hematocrit 39.8 % (41.0-53.0); Hemoglobin 14.2 g/dL (13.5-17.5); Lymphocytes # (auto) 1.5 10 ^3/uL (0.4-5.4); Lymphocytes % (auto) 17.4 % (10.0-50.0); Mean Corpuscular Hemoglobin 35.8 pg (28.0-32.0); Mean Corpuscular Hgb Conc. 35.7 g/dL (32.0-36.0); Mean Corpuscular Volume 100.1 fL (80.0-100.0); Monocytes # (auto) 0.8 10 ^3/uL (0-1.3); Monocytes % (auto) 8.8 % (0.0-12.0); Neutrophils # (auto) 6.1 10 ^3/uL (1.6-8.6); Neutrophils % (auto) 71.3 % (37.0-80.0); Nucleated Red Blood Cells % 0.1 %; Platelet Count (auto) 292 10^3/uL (140-450); Red Blood Cells 3.97 10^6/uL (4.5-5.90); Red Cell Distribution Width 13.3 % (11.8-14.3); White Blood Cell 8.6 10^3/uL (4.4-10.8)
[2020-08-20 11:34] LABS: INR 0.97 (0.9-1.15); Partial Thromboplastin Time 29.3 sec (23.0-31.2)
== END | disposition home or self-care (01) ==
LOC: LAB 10:50
PROVIDERS: ATTEND Surgery
DX: R91.8 Other nonspecific abnormal finding of lung field (principal)
CPT/HCPCS: 36415; 85025; 85049; 85610; 85730

== ENCOUNTER → 2020-08-21 | Outpatient (CLI) | payer OTHER ==
[~2020-08-21] MED LIST changes: +MIDAZOLAM HCL 1MG/1ML-2 ML VIAL IV ONE; +MIDAZOLAM HCL 1MG/1ML-2 ML VIAL ONE; +fentaNYL CITRATE 100 MCG/2 ML VL IV ONE; +fentaNYL CITRATE 100 MCG/2 ML VL ONE
== END | disposition home or self-care (01) ==
LOC: CT 08:36
PROVIDERS: ATTEND Surgery
DX: R91.8 Other nonspecific abnormal finding of lung field (principal); J16.8 Pneumonia due to other specified infectious organisms; F17.200 Nicotine dependence, unspecified, uncomplicated; J84.10 Pulmonary fibrosis, unspecified; Z85.118 Personal history of other malignant neoplasm of bronchus and lung
CPT/HCPCS: 10022; 32408; 71045; 71250; 77012; J2250

== ENCOUNTER 2022-04-24 05:05 | Inpatient (IN) | payer OTHER ==
[~2022-04-24] VITALS: Ht 167.6 cm; Wt 52.5 kg
[~2022-04-24 05:05] MED LIST changes: -MIDAZOLAM HCL 1MG/1ML-2 ML VIAL IV ONE; -MIDAZOLAM HCL 1MG/1ML-2 ML VIAL ONE; -fentaNYL CITRATE 100 MCG/2 ML VL IV ONE; -fentaNYL CITRATE 100 MCG/2 ML VL ONE
[2022-04-24 05:58] LABS: Basophils # (auto) 0.1 10 ^3/uL (0-0.2); Basophils % (auto) 0.7 % (0.0-2.0); Eosinophils # (auto) 0.4 10 ^3/uL (0-0.8); Eosinophils % (auto) 4.4 % (0.0-7.0); Hematocrit 36.4 % (41.0-53.0); Hemoglobin 12.1 g/dL (13.5-17.5); Lymphocytes # (auto) 0.6 10 ^3/uL (0.4-5.4); Lymphocytes % (auto) 5.7 % (10.0-50.0); Mean Corpuscular Hemoglobin 29.8 pg (28.0-32.0); Mean Corpuscular Hgb Conc. 33.4 g/dL (32.0-36.0); Mean Corpuscular Volume 89.3 fL (80.0-100.0); Monocytes % (auto) 10.4 % (0.0-12.0); Neutrophils # (auto) 7.7 10 ^3/uL (1.6-8.6); Neutrophils % (auto) 78.8 % (37.0-80.0); Nucleated Red Blood Cells % 0.1 %; Red Blood Cells 4.07 10^6/uL (4.5-5.90); Red Cell Distribution Width 16.2 % (11.8-14.3); White Blood Cell 9.8 10^3/uL (4.4-10.8)
[2022-04-24 06:17] LABS: Albumin 1.9 g/dL (3.4-5.0); BUN/Creatinine Ratio 15.3
[2022-04-24 06:20] LABS: Bilirubin, Total 0.3 mg/dL (0.2-1.0); Total Protein 8.4 g/dL (6.4-8.2)
[2022-04-24] MEDS ORDERED: IOHEXOL 350 MG/ML 100ML IJ ONE (09:57)
[2022-04-24] MEDS ORDERED: HEPARIN DRIP/D5W 100UNITS/ML 250 ML IV SCH (16:15)
[2022-04-24] MEDS ORDERED: MORPHINE SULFATE INJ 2 MG/ml SYRG IV PRN (16:15)
[2022-04-24] MEDS ORDERED: NITROGLYCERIN 0.4 MG SL TAB SL PRN (16:15)
[2022-04-24] MEDS ORDERED: ACETAMINOPHEN 500 MG TAB PO PRN (16:15)
[2022-04-24] MEDS ORDERED: ONDANSETRON HCL 4 MG/2 ML VIAL IV PRN (16:15)
[2022-04-24] MEDS ORDERED: DEXTROSE (50%) 50ML SYRG IV PRN ×2 (16:15→17:45)
[2022-04-24] MEDS ORDERED: HEPARIN SODIUM (PORCINE) 5000 UNITS/ML 1ML VIAL IV ONE (16:15)
[2022-04-24] MEDS: InsuLIN REG 1unit/0.01ml Soln (100units/ml) SC SCH ×2 (17:00→22:00)
[2022-04-24 17:22] LABS: INR 1.06 (0.9-1.15); Partial Thromboplastin Time 31.1 sec (24.6-33.4)
[2022-04-24] MEDS: ACCU-CHEK COMFORT CURVE STRIP VI SCH ×2 (17:29→22:00)
[2022-04-24] MEDS: ALBUTEROL SULF 2.5 MG/0.5ML(0.5%) NEB SOLN NEB SCH (18:40)
[2022-04-24] MEDS: IPRATROPIUM BROM 0.5 MG/2.5ML INH SOL NEB SCH (18:40)
[2022-04-24 19:30] LABS: Folate (Folic Acid) 20.18 ng/mL (5.38-24)
[2022-04-24 19:49] VITALS: BP 155/71
[2022-04-24] MEDS ORDERED: InsuLIN REG 1unit/0.01ml Soln (100units/ml) SC SCH (22:00)
[2022-04-24] MEDS ORDERED: ACCU-CHEK COMFORT CURVE STRIP VI SCH (22:00)
[2022-04-24] MEDS: GABAPENTIN 100 MG CAP PO SCH (22:42)
[2022-04-24] MEDS: ATORVASTATIN 20 MG TAB PO SCH (22:42)
[2022-04-25] VITALS (7 sets, daily range): BP systolic 96–112; BP diastolic 55–63
[2022-04-25 01:18] LABS: INR 1.03 (0.9-1.15); Partial Thromboplastin Time 36.2 sec (24.6-33.4)
[2022-04-25] MEDS ORDERED: HEPARIN DRIP/D5W 100UNITS/ML 250 ML IV SCH ×3 (02:00→22:45)
[2022-04-25] MEDS: GABAPENTIN 100 MG CAP PO SCH ×3 (05:16→21:42)
[2022-04-25 06:21] LABS: Cholesterol 106 mg/dL (< 200); Triglycerides 97 mg/dL (< 150)
[2022-04-25 06:24] LABS: HDL Cholesterol 30 mg/dL (40-59); LDL Cholesterol 69 mg/dL (< 100)
[2022-04-25] MEDS: ACCU-CHEK COMFORT CURVE STRIP VI SCH ×4 (06:25→21:43)
[2022-04-25] MEDS: InsuLIN REG 1unit/0.01ml Soln (100units/ml) SC SCH ×4 (06:26→21:49)
[2022-04-25] MEDS: IPRATROPIUM BROM 0.5 MG/2.5ML INH SOL NEB SCH ×3 (06:36→20:16)
[2022-04-25] MEDS: ALBUTEROL SULF 2.5 MG/0.5ML(0.5%) NEB SOLN NEB SCH ×3 (06:36→20:16)
[2022-04-25 06:37] LABS: INR 1.04 (0.9-1.15); Partial Thromboplastin Time 37.8 sec (24.6-33.4)
[2022-04-25] MEDS: ASPirin 81 mg TAB PO SCH (09:23)
[2022-04-25] MEDS: SERTRALINE HCL 50 MG TAB PO SCH (09:24)
[2022-04-25 15:55] LABS: INR 1.05 (0.9-1.15)
[2022-04-25] MEDS: ATORVASTATIN 20 MG TAB PO SCH (21:42)
[2022-04-25] MEDS: HYDROcodone-ACET 5/325MG TAB PO PRN (21:43)
[2022-04-25 22:14] LABS: INR 1.07 (0.9-1.15); Partial Thromboplastin Time 49.2 sec (24.6-33.4)
[2022-04-26 05:00] VITALS: BP 136/49
[2022-04-26] MEDS: ACCU-CHEK COMFORT CURVE STRIP VI SCH ×4 (06:11→22:26)
[2022-04-26] MEDS: GABAPENTIN 100 MG CAP PO SCH ×3 (06:11→22:25)
[2022-04-26] MEDS: InsuLIN REG 1unit/0.01ml Soln (100units/ml) SC SCH ×4 (06:14→22:34)
[2022-04-26] MEDS: ALBUTEROL SULF 2.5 MG/0.5ML(0.5%) NEB SOLN NEB SCH ×3 (07:39→18:29)
[2022-04-26] MEDS: IPRATROPIUM BROM 0.5 MG/2.5ML INH SOL NEB SCH ×3 (07:39→18:29)
[2022-04-26 08:00] LABS: INR 1.06 (0.9-1.15); Partial Thromboplastin Time 66.4 sec (24.6-33.4)
[2022-04-26 08:54] VITALS: BP 107/63
[2022-04-26] MEDS: ASPirin 81 mg TAB PO SCH (09:24)
[2022-04-26] MEDS: SERTRALINE HCL 50 MG TAB PO SCH (09:25)
[2022-04-26 12:05] VITALS: BP 109/59
[2022-04-26] MEDS ORDERED: HEPARIN DRIP/D5W 100UNITS/ML 250 ML IV SCH (14:15)
[2022-04-26 16:31] VITALS: BP 100/64
[2022-04-26 22:00] VITALS: BP 106/54
[2022-04-26] MEDS: Glucerna Carbsteady SHAKE Vanilla 8oz PO SCH (22:00)
[2022-04-26] MEDS: ATORVASTATIN 20 MG TAB PO SCH (22:25)
[2022-04-27] VITALS (9 sets, daily range): BP systolic 93–113; BP diastolic 45–62
[2022-04-27] MEDS: GABAPENTIN 100 MG CAP PO SCH ×3 (05:59→20:47)
[2022-04-27] MEDS: ACCU-CHEK COMFORT CURVE STRIP VI SCH ×5 (05:59→21:58)
[2022-04-27] MEDS: ALBUTEROL SULF 2.5 MG/0.5ML(0.5%) NEB SOLN NEB SCH ×3 (06:00→18:00)
[2022-04-27] MEDS: IPRATROPIUM BROM 0.5 MG/2.5ML INH SOL NEB SCH ×3 (06:00→18:00)
[2022-04-27 06:26] LABS: Basophils # (auto) 0.1 10 ^3/uL (0-0.2); Basophils % (auto) 0.7 % (0.0-2.0); Eosinophils # (auto) 0.3 10 ^3/uL (0-0.8); Eosinophils % (auto) 3.7 % (0.0-7.0); Hematocrit 32.6 % (41.0-53.0); Hemoglobin 10.7 g/dL (13.5-17.5); Lymphocytes # (auto) 0.6 10 ^3/uL (0.4-5.4); Lymphocytes % (auto) 6.6 % (10.0-50.0); Mean Corpuscular Hemoglobin 29.2 pg (28.0-32.0); Mean Corpuscular Volume 88.6 fL (80.0-100.0); Monocytes # (auto) 0.8 10 ^3/uL (0-1.3); Monocytes % (auto) 9.2 % (0.0-12.0); Neutrophils # (auto) 6.7 10 ^3/uL (1.6-8.6); Neutrophils % (auto) 79.8 % (37.0-80.0); Red Blood Cells 3.67 10^6/uL (4.5-5.90); Red Cell Distribution Width 15.9 % (11.8-14.3); White Blood Cell 8.4 10^3/uL (4.4-10.8)
[2022-04-27] MEDS: InsuLIN REG 1unit/0.01ml Soln (100units/ml) SC SCH ×4 (06:34→21:59)
[2022-04-27 06:39] LABS: Potassium 3.8 mmol/L (3.5-5.1)
[2022-04-27 06:47] LABS: BUN/Creatinine Ratio 17.6; Calcium 8.7 mg/dL (8.5-10.1)
[2022-04-27] MEDS: SERTRALINE HCL 50 MG TAB PO SCH (08:11)
[2022-04-27] MEDS: Glucerna Carbsteady SHAKE Vanilla 8oz PO SCH ×2 (08:11→21:58)
[2022-04-27] MEDS: ASPirin 81 mg TAB PO SCH (08:11)
[2022-04-27] MEDS ORDERED: IODIXANOL 320MG/ML 100ML BTL IV ONE (09:28)
[2022-04-27] MEDS ORDERED: LIDOCAINE 2%HCL (LOCAL ANESTH.) INJ 20ML MDV ONE (09:28)
[2022-04-27] MEDS ORDERED: fentaNYL CITRATE 100 MCG/2 ML VL ONE (09:35)
[2022-04-27] MEDS ORDERED: ANGIOMAX 250 MG VIAL IV ONE (09:35)
[2022-04-27] MEDS ORDERED: SODIUM CHL 0.9% 50 ML ONE (09:36)
[2022-04-27] MEDS ORDERED: MIDAZOLAM HCL 2MG/2ML 2ml VIAL (1mg/ml) ONE (09:36)
[2022-04-27 09:53] LABS: Hepatitis C Antibody Negative (Negative)
[2022-04-27] MEDS ORDERED: CLOPIDOGREL 300 MG TAB ONE (10:56)
[2022-04-27] MEDS ORDERED: MORPHINE SULFATE INJ 2 MG/ml SYRG IV PRN (17:00)
[2022-04-27] MEDS: ATORVASTATIN 20 MG TAB PO SCH (20:47)
[2022-04-27] MEDS: HYDROcodone-ACET 5/325MG TAB PO PRN (20:56)
[2022-04-28 01:34] VITALS: BP 113/59
[2022-04-28 05:00] VITALS: BP 115/65
[2022-04-28] MEDS: GABAPENTIN 100 MG CAP PO SCH ×2 (05:47→12:55)
[2022-04-28] MEDS: IPRATROPIUM BROM 0.5 MG/2.5ML INH SOL NEB SCH ×2 (06:00→11:09)
[2022-04-28] MEDS: ALBUTEROL SULF 2.5 MG/0.5ML(0.5%) NEB SOLN NEB SCH ×2 (06:00→11:09)
[2022-04-28] MEDS: ACCU-CHEK COMFORT CURVE STRIP VI SCH ×3 (06:05→17:00)
[2022-04-28] MEDS: InsuLIN REG 1unit/0.01ml Soln (100units/ml) SC SCH ×3 (06:05→17:00)
[2022-04-28 08:00] VITALS: BP_SYST 111; BP_SYST 115; BP_DIAS 60; BP_DIAS 74
[2022-04-28] MEDS: ASPirin 81 mg TAB PO SCH (09:28)
[2022-04-28] MEDS: SERTRALINE HCL 50 MG TAB PO SCH (09:29)
[2022-04-28] MEDS: Glucerna Carbsteady SHAKE Vanilla 8oz PO SCH (09:29)
[2022-04-28] MEDS ORDERED: CLOPIDOGREL BISULFATE 75 MG TAB PO SCH (10:00)
[2022-04-28 12:00] VITALS: BP 111/60
[2022-04-28] MEDS ORDERED: ATOR20TA50 PO (14:34)
[2022-04-28] MEDS ORDERED: ASPI-325 PO (14:34)
[2022-04-28] MEDS ORDERED: CLOP75TA70 PO (14:35)
[2022-04-28] MEDS ORDERED: GAB100C PO (14:35)
[2022-04-28] MEDS ORDERED: SERT50TA PO (14:35)
[2022-04-28 16:00] VITALS: BP 101/54
[2022-04-28 16:55] VITALS: BP 111/60
== END 2022-04-28 17:20 | disposition home or self-care (01) | DRG 270 ==
LOC: EDBD 05:05 → ER 05:05 → TELE 16:20 → TELE-CENTR 04-25 02:01
PROVIDERS: ADMIT Hospitalist; ATTEND Hospitalist
PROC: 04CC3ZZ Extirpation of Matter from Right Common Iliac Artery, Percutaneous Approach (ICD-10-PCS; principal; 2022-04-27)
PROC: 047C3ZZ Dilation of Right Common Iliac Artery, Percutaneous Approach (ICD-10-PCS; 2022-04-27)
PROC: 04FC3ZZ Fragmentation of Right Common Iliac Artery, Percutaneous Approach (ICD-10-PCS; 2022-04-27)
PROC: B41CYZZ Fluoroscopy of Pelvic Arteries using Other Contrast (ICD-10-PCS; 2022-04-27)
DX: E11.51 Type 2 diabetes mellitus with diabetic peripheral angiopathy without gangrene (principal); E43 Unspecified severe protein-calorie malnutrition; C34.90 Malignant neoplasm of unspecified part of unspecified bronchus or lung; Z68.1 Body mass index [BMI] 19.9 or less, adult; I10 Essential (primary) hypertension; F32.A Depression, unspecified; I25.10 Atherosclerotic heart disease of native coronary artery without angina pectoris; R00.0 Tachycardia, unspecified; M54.16 Radiculopathy, lumbar region; Z20.822 Contact with and (suspected) exposure to COVID-19; J44.9 Chronic obstructive pulmonary disease, unspecified; Z80.0 Family history of malignant neoplasm of digestive organs; I25.2 Old myocardial infarction; Z82.49 Family history of ischemic heart disease and other diseases of the circulatory system; Z83.3 Family history of diabetes mellitus; Z85.118 Personal history of other malignant neoplasm of bronchus and lung
CPT/HCPCS: 36415; 37184; 70450; 72131; 73706; 75736; 80048; 80053; 80061; 82607; 82746; 82962; 83036; 85025; 85610; 85730; 86803; 86850; 86900; 86901; 87340; 87426; 93005; 93306; 93925; 93926; 94640; 96365; 96375; C1769; G0378; J1815; J2250; Q9967

== ENCOUNTER 2022-05-14 19:56 | Inpatient (IN) | payer OTHER ==
[~2022-05-14] VITALS: Ht 167.6 cm; Wt 60.0 kg
[~2022-05-14 19:56] MED LIST changes: +ASPI-325 PO; +ATOR20TA50 PO; +CLOP75TA70 PO; -FOLI1TAB6 PO; +GAB100C PO; -METF-370 PO; -PRE1T PO; +SERT50TA PO; -SERT50TA19 PO
[2022-05-14] MEDS ORDERED: NOREPINEPHRINE 8 MG/250ML KIT 250 ML IV ONE (20:04)
[2022-05-14] MEDS ORDERED: EPINEPHrine HCL 250 ML IV SCH (20:30)
[2022-05-14 20:47] LABS: Basophils # (auto) 0.1 10 ^3/uL (0-0.2); Hemoglobin 9.5 g/dL (13.5-17.5); Monocytes # (auto) 0.9 10 ^3/uL (0-1.3)
[2022-05-14 20:49] LABS: Basophils % (auto) 0.6 % (0.0-2.0); Eosinophils # (auto) 0.3 10 ^3/uL (0-0.8); Eosinophils % (auto) 1.9 % (0.0-7.0); Hematocrit 33.7 % (41.0-53.0); Lymphocytes # (auto) 2.2 10 ^3/uL (0.4-5.4); Lymphocytes % (auto) 15.2 % (10.0-50.0); Mean Corpuscular Hemoglobin 28.4 pg (28.0-32.0); Mean Corpuscular Hgb Conc. 28.3 g/dL (32.0-36.0); Mean Corpuscular Volume 100.5 fL (80.0-100.0); Monocytes % (auto) 6.1 % (0.0-12.0); Neutrophils # (auto) 11.1 10 ^3/uL (1.6-8.6); Neutrophils % (auto) 76.2 % (37.0-80.0); Nucleated Red Blood Cells % 0.5 %; Red Blood Cells 3.35 10^6/uL (4.5-5.90); Red Cell Distribution Width 18.7 % (11.8-14.3); White Blood Cell 14.6 10^3/uL (4.4-10.8)
[2022-05-14] MEDS ORDERED: EPINEPHrine HCL 1 MG/10 ML SYRG IV ONE (20:51)
[2022-05-14 21:00] VITALS: BP 93/54
[2022-05-14 21:13] LABS: Urine Bacteria MANY /hpf (None Seen); Urine Blood Negative /uL (Negative); Urine Mucus FEW (None Seen); Urine Specific Gravity 1.025 (1.001-1.035); Urine Sperm PRESENT /hpf (None Seen); Urine WBC 1 /hpf (0 - 3)
[2022-05-14 21:14] LABS: Alanine Aminotransferase 846 U/L (16-61); Albumin 1.6 g/dL (3.4-5.0); Anion Gap 26 (5-15); BUN/Creatinine Ratio 19.8 (10.0-20.0); Blood Alcohol < 3.0 mg/dL (0-5); Blood Urea Nitrogen 21 mg/dL (7-18); Carbon Dioxide 15 mmol/L (21-32); Chloride 98 mmol/L (98-107); GFR African American 90 mL/min; GFR Non-African American 75 mL/min; Glucose 191 mg/dL (74-106); Potassium 5.5 mmol/L (3.5-5.1); Sodium 139 mmol/L (136-145)
[2022-05-14 21:14] LABS: Alcohol, Urine < 3.0 mg/dL (0-10); Amphetamine Screen, Urine NEGATIVE (NEGATIVE); Barbiturate Scree,Urine NEGATIVE (NEGATIVE); Benzodiazephine Screen, Urine NEGATIVE (NEGATIVE); Cannabinoid Screen, Urine NEGATIVE (NEGATIVE); Cocaine Screen, Urine NEGATIVE (NEGATIVE)
[2022-05-14] MEDS ORDERED: NOREPINEPHRINE 8 MG/250ML KIT 250 ML IV SCH ×2 (21:15→21:45)
[2022-05-14 21:23] LABS: Alkaline Phosphatase 136 U/L (45-117); Aspartate Aminotransferase 1561 U/L (15-37); Bilirubin, Total 0.3 mg/dL (0.2-1.0); Total Protein 6.8 g/dL (6.4-8.2)
[2022-05-14 21:23] LABS: Opiate Scree,Urine POSITIVE (NEGATIVE); Phencyclidine Screen, Urine NEGATIVE (NEGATIVE)
[2022-05-14] MEDS ORDERED: LIDOCAINE 2%HCL (LOCAL ANESTH.) INJ 20ML MDV ONE (21:59)
[2022-05-14] MEDS ORDERED: ANGIOMAX 250 MG VIAL IV ONE (21:59)
[2022-05-14] MEDS ORDERED: SODIUM CHL 0.9% 0 ML ONE (21:59)
[2022-05-14] MEDS ORDERED: HEPARIN SODIUM (PORCINE) 5000 UNITS/ML 1ML VIAL IV ONE (22:00)
[2022-05-14] MEDS ORDERED: IODIXANOL 320MG/ML 100ML BTL IV ONE (22:00)
[2022-05-14] MEDS ORDERED: ASPirin 325 MG TAB NG ONE (22:00)
[2022-05-14] MEDS ORDERED: SODIUM BICARBONATE 8.4 % INJ 50ML VIAL IV ONE (22:15)
[2022-05-14] MEDS ORDERED: PIPERACILLIN-TAZOB 3.375GM 100 ML IV ONE (22:30)
[2022-05-14] MEDS ORDERED: InsuLIN REG 1unit/0.01ml Soln (100units/ml) SC ONE (22:30)
[2022-05-14] MEDS ORDERED: SODIUM CHLORIDE 0.9% 1,000 ML IV SCH (22:30)
[2022-05-14] MEDS ORDERED: ONDANSETRON HCL 4 MG/2 ML VIAL IV PRN (22:30)
[2022-05-14] MEDS ORDERED: DEXTROSE (50%) 50ML SYRG IV PRN (22:30)
[2022-05-14] MEDS ORDERED: IBUPROFEN 100MG/5ML ORAL SUSP 100 MG/5 ML UD GT PRN (22:30)
[2022-05-14] MEDS ORDERED: ALBUMIN 25% 100 ML IV SCH (23:00)
[2022-05-14] MEDS ORDERED: NITROGLYCERIN 0.4 MG SL TAB SL PRN (23:30)
[2022-05-14] MEDS ORDERED: MORPHINE SULFATE INJ 2 MG/ml SYRG IV PRN (23:30)
[2022-05-14 23:51] VITALS: BP 33/18
[2022-05-15] MEDS ORDERED: ACCU-CHEK COMFORT CURVE STRIP VI SCH
[2022-05-15] MEDS ORDERED: InsuLIN REG 1unit/0.01ml Soln (100units/ml) SC SCH
[2022-05-15] MEDS ORDERED: PIPERACILLIN-TAZOB 3.375GM 100 ML IV SCH (06:00)
[2022-05-15] MEDS ORDERED: FAMOTIDINE (10MG/ML) 2ML VL IV SCH (10:00)
[2022-05-15] MEDS ORDERED: HEPARIN SODIUM (PORCINE) 5000 UNITS/ML 1ML VIAL SC SCH (10:00)
[2022-05-15] MEDS ORDERED: EPINEPHrine HCL 1 MG/10 ML SYRG IV ONE (12:54)
== END 2022-05-15 00:20 | DRG 208 ==
LOC: EDSEX 19:56 → EDBD 19:56 → ER 19:56 → TELE 23:19
PROVIDERS: ADMIT Nurse Practitioner Family; ATTEND Nurse Practitioner Family
PROC: 5A1935Z Respiratory Ventilation, Less than 24 Consecutive Hours (ICD-10-PCS; principal; 2022-05-14)
PROC: 0BH17EZ Insertion of Endotracheal Airway into Trachea, Via Natural or Artificial Opening (ICD-10-PCS; 2022-05-14)
PROC: 06HM33Z Insertion of Infusion Device into Right Femoral Vein, Percutaneous Approach (ICD-10-PCS; 2022-05-14)
PROC: 5A12012 Performance of Cardiac Output, Single, Manual (ICD-10-PCS; 2022-05-14)
DX: J96.21 Acute and chronic respiratory failure with hypoxia (principal); I21.09 ST elevation (STEMI) myocardial infarction involving other coronary artery of anterior wall; E43 Unspecified severe protein-calorie malnutrition; I46.9 Cardiac arrest, cause unspecified; D64.9 Anemia, unspecified; D72.829 Elevated white blood cell count, unspecified; E11.65 Type 2 diabetes mellitus with hyperglycemia; E78.5 Hyperlipidemia, unspecified; E87.5 Hyperkalemia; Z66 Do not resuscitate; J44.9 Chronic obstructive pulmonary disease, unspecified; F32.A Depression, unspecified; R79.89 Other specified abnormal findings of blood chemistry; I95.9 Hypotension, unspecified; Z85.118 Personal history of other malignant neoplasm of bronchus and lung; Z87.891 Personal history of nicotine dependence; Z92.21 Personal history of antineoplastic chemotherapy; Z92.3 Personal history of irradiation; Z68.21 Body mass index [BMI] 21.0-21.9, adult
CPT/HCPCS: 36415; 36600; 70450; 71045; 80053; 80307; 80320; 81001; 82805; 84484; 85025; 86850; 86900; 86901; 87070; 87205; 93005; 94002; 99291; G0378; J0171; Q9967